=== PATIENT | female | born 1975 | race Caucasian/White ===

== ENCOUNTER 2024-08-23 11:32 | Emergency (ER) | payer SELFPAY ==
[2024-08-23 11:39] VITALS: BP 139/91; PULSE 91; RESP 18; TEMP 37.3; O2SAT 92; BMI 49.1
[2024-08-23 12:30] LABS: Covid PCR NEGATIVE (Negative); Influenza A POSITIVE (Negative); Influenza B NEGATIVE (Negative); Respiratory Syncytial Virus Ce NEGATIVE (Negative)
--- NOTE | 2024-08-23 13:45 | ED_ITS ---
HPI - URI/Sore Throat General: Chief Complaint: Upper Respiratory Infection Stated Complaint: sick Time Seen by Provider: 08/23/24 13:37 Source: patient Mode of arrival: ambulatory Limitations: no limitations History of Present Illness: 49-year-old female states she been havin g cough congestion has been going on for the last 3 days. States she is also had some vomiting. States she has had bodyaches and low-grade fevers she believes she may have the flu has been around sick contacts at work. Denies any worse improving factors. Associated symptoms: Reports chills, fever(s), nausea and vomiting; Deny abdominal pain, chest pain, diarrhea or headache(s) Related Data Previous Rx's ?Medication ?Instructions ?Recorded ondansetron 4 mg disintegrating 4 mg PO Q6H PRN nausea and 08/23/24 tablet vomiting #14 tabs Allergies Allergy/AdvReac Type Severity Reaction Status Date / Time No Known Allergies Allergy Verified 08/23/24 11:42 Review of Systems Const: Reports: fever(s), chills and body aches; Denies: change in appetite ENMT: Denies: throat pain or dental pain Card: Denies: chest pain Resp: Reports: dyspnea and non-productive cough GI: Reports: nausea and vomiting; Denies: abdominal pain or diarrhea Musc: Denies: neck pain or back pain Skin/Breast: Denies: rash Neuro: Denies: headache(s) Physical Exam Const: COMMON NORMALS: no acute distress, patient oriented x3 and healthy appearing HENMT: COMMON NORMALS: normocephalic and atraumatic HEAD & SCALP: normocephalic and atraumatic Neck/C-Spine: COMMON NORMALS: full ROM and supple Chest: COMMONS NORMALS: normal inspection of the chest Resp: COMMON NORMALS: normal respiratory effort, No retractions, No use of accessory muscles and clear to auscultation bilaterally AUSCULTATION: clear to auscultation bilaterally Cardio: COMMON NORMALS: regular rate, regular rhythm and No murmurs present (Cardio) RATE: regular rate RHYTHM: regular rhythm GI: COMMON NORMALS: Normal to inspection, nondistended, normoactive bowel sounds present, Soft to palpation, non-tender and no masses PALPATION: Yes Soft to palpation Extremity: COMMON NORMALS: normal to inspection and full ROM Neuro: COMMON NORMALS: patient oriented x3, moves all extremities and no focal motor deficits Psych: COMMON NORMALS: mental status grossly normal, Normal thought process present and cooperative THOUGHT PROCESS: Normal thought process present Skin: COMMON NORMALS: no rashes or lesions noted and no wounds GENERAL SKIN EXAM: no rashes or lesions noted Course Vital Signs: Vital signs: Vital Signs Temperature 99.2 F 08/23/24 11:39 Pulse Rate 91 08/23/24 11:39 Respiratory Rate 18 08/23/24 11:39 Blood Pressure 139/91 08/23/24 11:39 Pulse Oximetry 92 08/23/24 11:39 Oxygen Delivery Me thod Room Air 08/23/24 11:39 MDM - URI/Sore Throat Medical Decision Making Patient presents for cough congestion did test positive for influenza likely ca using her symptoms she is otherwise well-appearing here we will prescribe her nausea medicine for home she is take Motrin Tylenol at home she is follow-up with PCP return if worsening. Medical Records I reviewed the patient's medical records. Lab Data I reviewed the patient's lab results. Laboratory Results Coronavirus (PCR) Negative (Negative) 08/23/24 11:42 Influenza A (PCR) Positive (Negative) 08/23/24 11:42 Influenza Type B (PCR) Negative (Negative) 08/23/24 11:42 RSV (PCR) Negative (Negative) 08/23/24 11:42 No radiology studies performed this visit Discharge Plan Discharge Patient Disposition: Home Clinical Impression: Influenza Condition: Stable Prescriptions: New ondansetron 4 mg tablet,disintegrating 4 mg PO Q6H PRN (Reason: nausea and vomiting) Qty: 14 0RF Discharge Orders: Discharge ED (Routine); Ordered 08/23/24 Ordered By: Sofia Silva Discharge Diet: Advance as tolerated Discharge Activity: Resume usual activity Patient Instructions: Influenza (ED) Print Language: Luxembourgish Coding Level of Care Code ED Reconciliation Specialist for Thelma Banerjee
[2024-08-23 13:49] VITALS: PULSE 86; RESP 18; O2SAT 91
[2024-08-23 14:08] VITALS: BP 146/83; PULSE 82; RESP 16; O2SAT 90
[2024-08-23] MEDS: ketorolac 30 mg/mL INJ IM (14:11)
[2024-08-23] MEDS: ondansetron 2 mg/ML SDV 2 mL 4 MG IM (14:11)
[2024-08-23 14:43] VITALS: BP 141/73; PULSE 76; O2SAT 98
== END 2024-08-23 14:44 | disposition home or self-care (01) ==
PROVIDERS: Emergency Provider Emergency Medicine
DX: J10.1 Influenza due to other identified influenza virus with other respiratory manifestations (principal); Z11.52 Encounter for screening for COVID-19
CPT/HCPCS: 87637; 96372; 99284; J1885; J2405

== ENCOUNTER 2025-03-04 07:48 | Outpatient (CLI) | payer OTHER, SELFPAY ==
--- NOTE | 2025-03-04 07:53 | MM_ITS ---
WS: [id number] Bilateral screening 3D tomosynthesis digital mammogram, 03/04/2025 7:53 AM Clinical Data: SCREEN Comparison: 11/30/2023, 11/10/2022. Findings: No spiculated masses or clustered calcifications are seen. There are no secondary signs of carcinoma. MM/MM scr BI tomosynthesis [id number] Impression: Negative bilateral mammogram unchanged. Recommend annual screening mammograms. BIRADS: 1 - Negative. FOLLOW UP: 1 Year Follow-up DENSITY: The breasts are almost entirely fatty. The CAD bad cloth checker was used
== END 2025-03-04 07:49 | disposition home or self-care (01) ==
LOC: RAD 07:48
PROVIDERS: PCP Nurse Practitioner Family; Visit Provider Nurse Practitioner Family
DX: Z12.31 Encounter for screening mammogram for malignant neoplasm of breast (principal)
CPT/HCPCS: 77063; 77067